=== PATIENT | male | born 1965 | race Caucasian/White ===

== ENCOUNTER 2019-10-03 15:54 | Outpatient (CLI) | payer OTHER ==
--- NOTE | 2019-10-03 20:15 | HP ---
HISTORY OF PRESENT ILLNESS: Michael Yuen is a 53-year-old male patient from [place], has visited with a bariatric surgeon in [place] over the past year regarding his desire to have laparoscopic sleeve gastrectomy. Mr. Yuen has been through that bariatric surgeons program, seen a psychologist, obtained labs and planned to have surgery, but his insurance would not cover that. He presents now through Bariatric Surgery. He has a family history. Mother and father had coronary artery disease. The patient is dyspneic on exertion on occasion, probably weight related, 355 pounds, 48 BMI, 6 feet tall. He has tried numerous weight loss efforts on his own without durable results, losing 10-15 pounds. During the supervised weight loss program, required by the other surgeon, he did not lose any weight. His psychologist then thought he was a good candidate. The patient has reviewed our bariatric seminar online and does not have any questions. His brother did have a sleeve gastrectomy 2 years ago and lost from 400 pounds to 240 pounds. The patient has comorbidities of elevated cholesterol on diabetes for which he has started taking Victoza 4 weeks ago, has borderline hypertension, occasional GERD, but not on a daily basis for which he takes omeprazole daily, but when he does not take omeprazole, he does not have reflux daily, just occasionally when he eats late night meals. He has arthralgias, left greater than right, knee greater than ankle and chronic back pain, probably related to his obesity. He hopes to successfully lose weight to resolve his comorbidities, resolve his diabetes, have a better blood pressure to resolve his elevated cholesterol and help his arthralgias and low back pain. He is a good candidate with reasonable expectations, understands he will have to make good choices and changes in lifestyle for durable results. MEDICATIONS: 1. Victoza 1.2 mg daily. 2. Omeprazole 20 mg a day. 3. Crestor 10 mg a day. ALLERGIES: NONE. TOBACCO: None. ALCOHOL: None. PAST SURGICAL HISTORY: Lumbar surgery in 2000 related to accident. 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 He is anxious to get back to work. His accompanies during the visit. REVIEW OF SYSTEMS: Ten-point noncontributory. Cologuard in the last year was negative. The patient does have occasional dyspnea, probably weight related. Does not have any chest pain or pressure. He does have a family history of obesity. Dr. Jimmie Renner, [address] [facility], [address], [place], [place], has endorsed bariatric surgery for him. The patient desires laparoscopic sleeve gastrectomy. Review of systems otherwise noncontributory. PHYSICAL EXAMINATION: VITAL SIGNS: Height 6 feet, weight 355 pounds, 48 BMI, blood pressure 153/100, pulse 103, temperature 99.3 degrees. The patient states his blood pressure is always elevated when visiting the doctor, but it is usually 128/80. HEAD, EARS, EYES, NOSE, AND THROAT: Unremarkable. Sclerae nonicteric. LYMPH: No lymphadenopathy, neck, axilla, or groins. LUNGS: Clear to auscultation. No wheezing. CARDIAC: Regular rate and rhythm without murmur or gallop. ABDOMEN: Soft, obese, nontender. No hernia is evident. EXTREMITIES: No edema. ASSESSMENT/PLAN: 1. Morbid obesity, metabolic syndrome, 6 feet tall, 355 pounds, 48 BMI, having tried numerous nonsurgical weight loss efforts without durable results, desires sleeve gastrectomy. He understands risks of infection, bleeding, reoperation, staple line leakage, understands the importance of adhering to the postoperative dietary progression. We will arrange for him to see our dieticians, obtain baseline labs, and arrange cardiac stress test and plan laparoscopic sleeve gastrectomy on a day per his convenience. He and his will discuss desired surgery dates. 2. Elevated cholesterol. 3. Diabetes, recently started Victoza. 4. Borderline hypertension, not on any medications, but mainly elevated when he sees the physician. 5. Rare gastroesophageal reflux disease, on daily omeprazole. 6. Arthralgias, knees worse than ankles, left greater than right. 7. Chronic low back pain, history of lumbar surgery. Job ID: [id number]
== END 2019-10-03 15:55 | disposition home or self-care (01) ==
LOC: DTY/OP 15:54
PROVIDERS: ATTEND Specialist
DX: E66.01 Morbid (severe) obesity due to excess calories (principal); E78.00 Pure hypercholesterolemia, unspecified; E11.9 Type 2 diabetes mellitus without complications; K21.9 Gastro-esophageal reflux disease without esophagitis; M54.5 Low back pain; G89.29 Other chronic pain; R03.0 Elevated blood-pressure reading, without diagnosis of hypertension; M25.572 Pain in left ankle and joints of left foot; M25.571 Pain in right ankle and joints of right foot; M25.562 Pain in left knee; M25.561 Pain in right knee; Z68.42 Body mass index [BMI] 45.0-49.9, adult; Z98.890 Other specified postprocedural states
CPT/HCPCS: 97802